=== PATIENT | female | born 1990 | race Caucasian/White ===

== ENCOUNTER → 2021-06-16 09:17 | Outpatient (CLI) | payer OTHER, SELFPAY ==
[2021-06-16 11:15] LABS: COVID19 -Nasal RAPID Negative (Negative)
== END ==
PROVIDERS: PCP Family Medicine; Referring Provider Specialist; Visit Provider Specialist
DX: Z01.812 Encounter for preprocedural laboratory examination (principal); Z20.822 Contact with and (suspected) exposure to COVID-19
CPT/HCPCS: 87635

== ENCOUNTER 2021-06-17 06:54 | Day surgery (SDC) | payer OTHER, SELFPAY ==
[2021-06-15 14:43] VITALS: BMI 42.7
[2021-06-17] VITALS (7 sets, daily range): BP systolic 94–118; BP diastolic 63–70; PULSE 63–78; RESP 14–18; TEMP 36.1–36.3; O2SAT 96–100; BMI 42.4
--- NOTE | 2021-06-17 | DI.US.S_ITS ---
PROCEDURE: US PELVIC LIMITED INDICATIONS: OPERATING ROOM DILATION CURRETAGE ASSIST TECHNIQUE: Real-time transabdominal scanning was performed of the pelvic organs, with image documentation. COMPARISON: None. FINDINGS: Intraoperative ultrasound localization of the uterus was performed. Dictated by: Adam Ivey M.D. on 06/17/2021 at 11:58 Approved by: Adam Ivey M.D. on 06/17/2021 at 12:33
--- NOTE | 2021-06-17 | PATH_ITS ---
[facility] Accession Number: [id number] . 01 Material submitted: . PART A: endometrium - ENDOMETRIAL CURETTAGE PART B: endometrium - ENDOMETRIAL BIOPSY . 02 Diagnosis: A. Endometrial Curettage: Portions of weakly proliferative endometrium with stromal breakdown; negative for glandular hyperplasia, cytologic atypia, or malignancy. Background of blood and fibrin. . B. Endometrial Biopsy: Portions of proliferative endometrium; negative for glandular hyperplasia, cytologic atypia, or malignancy. Background of blood and fibrin and small fragments of myometrium, negative for atypia or malignancy. MRV 06/22/2021 1408 Local . 02 Electronically signed: . Nidia Patton MD, Pathologist NPI- [id number] . 01 Gross description: . Part A: ENDOMETRIAL CURETTAGE: Received in formalin are minute fragments of mucoid and hemorrhagic material measuring 3.0 x 1.2 x 0.1 cm in aggregate. Submitted in toto in 1 cassette. Part B: ENDOMETRIAL BIOPSY: Received in formalin are multiple fragment(s) of wilkes, soft tissue measuring 3.0 x 0.8 x 0.3 cm in aggregate submitted entirely in 1 cassette(s) /KAREN 06/18/2021 0456 Local . 02 Pathologist provided ICD-10: N93.9, N99.85 . 02 CPT . 733596, [id number] Performed at: 01 [facility] [address], [place], [place] [id number] MD Zeus Jiménez MD Phone: [phone] Performed at: 02 [facility] [address] [place], [place] [id number] MD Dianna Rasheed MD Phone: [phone]
--- NOTE | 2021-06-17 07:16 | SUR.OPER ---
Lithotomy on padded OR bed, head on pillow, arms secured on padded arm boards at <90 degrees abduction. Legs secured in padded yellow fins stirrups.
[2021-06-17] MEDS: LACTATED RINGERS 1,000 ML 100 ML IV (07:35)
--- NOTE | 2021-06-17 07:45 | PM.PREOP ---
Pre-operative Note COVID-19 COVID-19 status: Negative Result date/Date tested (Pos, Neg/Pending): 06/16/21 Interval Note History & Physical reviewed/Exam performed by Physician: Yes Changes to H&P: No
--- NOTE | 2021-06-17 08:22 | SUR.OPER ---
two minutes late to the or because we had to wait on ultrasounds for case.
--- NOTE | 2021-06-17 09:17 | P.OP_ITS ---
Operative Date/Time/Diagnoses Date of procedure: 06/17/21 Time of procedure: 09:17 Pre-op diagnosis: Pelvic pain with cystic masses in uterus post ablation Post-op diagnosis: same (Retained blood) Procedure & Clinicians Procedure: Hysteroscopy with endometrial curettage and ablation of endometrium left after prior to endometrial ablations under ultrasound guidance Same procedure as scheduled: Yes Indications: Patient with pelvic pain and ultrasound followed by MRI that showed enlarging cystic structures in the uterus with a history of endometrial ablations Surgeon: Angelique Rivers Click Yes if Unassisted: Yes Anesthesia Type: General Operative Notes Findings: Retained blood that released with dilation under ultrasound guidance. Areas of retained endometrium post endometrial ablations. Closure Type: not applicable Specimen(s): other (Endometrial biopsies) Estimated Blood Loss (mL): 5 Blood products transfused: none Procedure in detail: The patient was brought to the operating room where she underwent general anesthesia. She was placed in low stirrups She was prepped and draped in usual sterile fashion with pulsatile stockings in place and functional, warming in place. No antibiotics were indicated. A check system was reviewed with staff in the room prior to beginning the case. The bladder was filled with 240 cc of saline to allow clear visualization of the uterus with the abdominal ultrasound. A single-tooth tenaculum was placed on the anterior lip of the cervix and the uterus dilated to #8 Hegar dilator. During dilation the cystic structures drained with old blood coming out through the cervix. This was documented by t he ultrasound that the cystic structures had disappeared. Endometrial biopsy was performed. Tissue sent to pathology. The hysteroscope was placed into the uterus with a sorbitol solution running and under constant suction. The ball cautery set at 80 W of coagulation was used to cauterize the remnants of endometrium. The patient went to recovery room in good condition counts of instruments and sponges were correct. Estimated blood loss less than 5 mL. The sorbitol solution I=O approximately 2000 mL. Complications: none Post-operative Condition: stable Disposition: same day surgery Plan for aftercare: Home when awake and stable
== END 2021-06-17 10:00 | disposition home or self-care (01) ==
PROVIDERS: PCP Family Medicine; Referring Provider Specialist; Visit Provider Specialist
PROC: 0UDB8ZZ Extraction of Endometrium, Via Natural or Artificial Opening Endoscopic (ICD-10-PCS; CPT 58558; principal; 2021-06-17 08:00)
DX: R10.2 Pelvic and perineal pain (principal); N93.9 Abnormal uterine and vaginal bleeding, unspecified; N99.85 Post endometrial ablation syndrome; F32.9 Major depressive disorder, single episode, unspecified; F90.9 Attention-deficit hyperactivity disorder, unspecified type
CPT/HCPCS: 58563; 76857; 81025; J1100; J2250; J2405; J2704; J3010